=== PATIENT | female | born 1995 | race Caucasian/White ===

== ENCOUNTER 2024-11-15 10:48 | Outpatient (REF) | payer OTHER, SELFPAY ==
--- NOTE | ~2024-11-15 | US_ITS ---
EXAMINATION: US DIAGNOSTIC ULTRASOUND BREAST, RIGHT CLINICAL INFORMATION: 21-year-old female with right breast pain 2-4 o'clock.. COMPARISON: Comparison is made with relevant prior imaging. TECHNIQUE: Ultrasound of the breast is performed with real-time peralta scale imaging and color Doppler. FINDINGS: Targeted color Doppler ultrasound scanning in the right breast area of patient's pain from 2-4 o'clock demonstrates normal fibroglandular breast tissue. There is no sonographic abnormal finding. Results are discussed with the patient at time of visit. US/US breast RT limited mamm only IMPRESSION: No sonographic abnormal finding to account for the patient's right breast pain. Recommend clinical evaluation and follow-up. ASSESSMENT: BI-RADS 1: Negative RECOMMENDATION: Recommend clinical evaluation and follow-up. Age-appropriate mammography. Electronically signed by: Sobeida Gan DO 11/15/2024 11:54 AM EDT
--- OUTSIDE RECORDS SUMMARY | 2024-11-15 13:30 | XMS_ITS | Clinical Summary ---
Author Organization [facility] Address [address] [place] [address] Phone Care Team Providers Care Tub Rider Name Role Phone Gaby Carrera MD Primary Care Provider [phone] Allergies No known active allergies Medications triamcinolone acetonide 0.1 % cream APPLY TO AFFECTED AREA S) TWO TIMES A DAY FOR 14 DAYS 06/27/2024 Active Active Problems No known active problems Encounters Date Type Department Care Team Description 09/19/2024 Telephone [facility] [address] [place] [address] [place] [address] Skylar Silva MD Results 09/13/2024 8:40 AM EDT Procedure visit [facility] [address] [place] [address] [place] [address] Skylar Silva MD ASCUS with positive high risk HPV cervical (Primary Dx) 08/16/2024 Transcribe Orders [facility] [address] [place] [address] [place] [id number] Carol Patton DO from Last 3 Months Family History Medical History Relation Comments Alzheimer's disease Maternal Grandfather Relation Status Comments Brother Alive Father Alive Maternal Grandfather Maternal Grandmother Alive Mother Alive Paternal Grandfather Paternal Grandmother Sister 1 Alive Sister 2 Alive Sister 3 Alive Social History Tobacco Use Types Packs/Day Years Used Date Smoking Tobacco: Never Alcohol Use Standard Drinks/Week Comments No 0 (1 standard drink = 0.6 oz pur e alcohol) Education Answer Date Recorded Are you interested in more education? Not on radha e 07/03/2022 Are you concerned about learning? Not on file 07/03/2022 No 07/03/2022 No 07/03/2022 Digital Access Answer Date Recorded No 08/03/2022 No 08/03/2022 Reliable internet access at home? Not on file 08/03/2022 Device with a working camera? Not on file Comments Unknown Sex and Gender Information Value Date Recorded Sex Assigned at Not on file Legal Sex Female 4:53 PM EDT Gender Identity Not on file Sexual Orientation Not on file Last Filed Vital Signs Vital Sign Reading Time Taken Comments Blood Pressure 112/74 09/13/2024 8:44 AM EDT Pulse 52 06/23/2015 9:57 PM EDT Temperature 36.6 C (97.9 F) 06/23/2015 9:57 PM EDT Respiratory Rate 18 06/23/2015 8:20 PM EDT Oxygen Saturation 100% 06/23/2015 9:57 PM EDT Inhaled Oxygen Concentration - - Weight 56.7 kg (125 lb) 09/13/2024 8:44 AM EDT Height - - Body Mass Index - - Plan of Treatment Health Maintenance Due Date Last Done Comments DEPRESSION SCREENING 2008 HEPATITIS C SCREENING 02/22/2014 HIV ONE-TIME SCREENING (18-65 YEARS) 02/22/2014 PAP SMEAR 02/22/2017 SMOKING STATUS SCREENING (Once After 26 Yrs) 02/22/2022 INFLUENZA VACCINE (#1) 2024 12/10/2016 COVID-19 VACCINE ( season) 2024 Adult Td,Tdap Booster 12/31/2029 01/01/2020, 008 HIB VACCINES Completed 05/31/1997, 05/1996, 1996, Additional history exists HEPATITIS A VACCINES Aged Out No long er eligible based on patient's age to complete this topic MENINGOCOCCAL VACCINES (ACWY) Aged Out No longer eligible based on patient's age to complete this topic MENINGOCOCCAL VACCINES (B) Aged Out N o longer eligible based on patient's age to complete this topic PNEUMOCOCCAL VACCINES (0-49 years) Aged Out No longer eligible based on patient's age to complete this topic Medical Devices Not on file Procedures Procedure Name Priority Date/Time Associated Diagnosis Comments POCT URINE HCG Routine 09/13/2024 10:24 AM EDT ASCUS with positive high risk HPV cervical ANATOMIC PATHOLOGY Routine 09/13/2024 12 :00 AM EDT from Last 3 Months Results * Poct Urine HCG (09/13/2024 10:24 AM EDT) HCG, urine Negative, Internal QCs acceptable Negative [facility] Other 09/13/2024 10:2 4 AM EDT Skylar Silva MD POINT OF CARE TEST ORDERABLES Final Result Performing Organization Address City/State/[facility] de Phone Number [address] * Anatomic Pathology (09/13/2024 12:00 AM EDT) 09/13/2024 09/13/2024 3:0 4 PM EDT Narrative SEE NARRATIVE - 09/14/2024 12:42 [place] [address] [employer] Supervisor: Blane Krause MD Surgical Pathology Report FINAL PATHOLOGIC DIAGNOSIS: A. CERVICAL BIOPSY AT 12 O'CLOCK: Squamous epithelium with acute inflammation, negative for dysplasia. B. ENDOCERVICAL CURETTINGS: Mucus only. Electronically Signed Out By Leah Shahid MD By his/her signature above, the pathologist listed as making the Final Diagnosis certifies that he/she has personally reviewed this case and confirmed or corrected the diagnosis. CLINICAL HISTORY ASCUS with positive high risk HPV cervical SPECIMENS SUBMITTED: A: CERVICAL BIOPSY AT 12 O'CLOCK B: ENDOCERVICAL CURETTINGS GROSS DESCRIPTION A. CERVICAL BIOPSY AT 12 O'CLOCK: Formalin: Fragment of white tissue measuring 0.5 cm, entirely cassette A1. B. ENDOCERVICAL CURETTINGS: Formalin: Several fragments of mucoid tissue attached to a brush measuring in aggregate 0.1 cm, entirely cassette B1. DN 09/13/2024 Grossing Staff: RICKEY Patient Name: SKY HIGHTOWER : 1995 (Age: 29) Sex: F Institution: [facility] Location: [facility] Date of Operation: 09/13/2024 Date of Reported: 09/14/2024 12:42 Results To: Skylar Silva MD us Skylar Silva MD PATHOLOGY ORDERABLES Final Res ult SEE NARRATIVE from Last 3 Months [address] Member Subscriber Plan / Payer (Ef fective 2023-Present) Name:Sky Hightower Relation to Subscriber:Self Name:Sky Hightower Payer ID:[id number] (NAIC) Group ID:Not on file Type:Indemnity Address: [facility] [id number] [place] [id number] [address] [address] [address] [place] [address] Care Teams Tub Rider Relationship Specialty Start Date End Date Gaby Carrera MD [address] [place] [phone] [email or web address] PCP - General Pediatrics 06/23/15 Additional Source Comments The information contained in this document represents components of the legal health record. It is not the complete legal health record.[facility]
== END 2024-11-15 10:49 | disposition home or self-care (01) ==
LOC: HO.MAMMO 10:48
PROVIDERS: PCP Internal Medicine; Visit Provider Nurse Practitioner Family
DX: N64.4 Mastodynia (principal)
CPT/HCPCS: 76642

== ENCOUNTER → 2024-11-15 11:00 | Outpatient (BNV) | payer OTHER, SELFPAY | PROVIDERS: PCP Internal Medicine; Visit Provider Internal Medicine | DX: N64.4 Mastodynia (principal) | CPT/HCPCS: 76642 ==